=== PATIENT | male | born 1970 ===

== ENCOUNTER 2019-07-31 12:46 | Emergency (ER) | payer OTHER ==
[2019-07-31] MEDS ORDERED: Ketorolac *IM* INJ* 60 MG/2 ML VIAL IM ONE (13:24)
[2019-07-31] MEDS ORDERED: Cyclobenzaprine TAB* 10 MG PO ONE (13:25)
--- NOTE | 2019-07-31 13:31 | UC ---
Shoulder Pain HPI - HPI Summary HPI Summary: patient was shoveling snow 7-8 days ago and experienced L upper back and shoulder pain. has been taking ibuprofen for pain with little relief. pain seems to be getting worse over past 2 days. pain when moving L shoulder or raising arm - History of Current Complaint Chief Complaint: UCGeneralIllness Stated Complaint: NECK/SHOULDER PAIN Time Seen by Provider: 07/31/19 13:09 Hx Obtained From: Patient Onset/Duration: Gradual Onset Timing: Constant Severity Initially: Mild Severity Currently: Moderate Pain Intensity: 7 Character: Throbbing, Spasmodic, Stiffness Aggravating Factor(s): Movement, Lifting, Abduction Alleviating Factor(s): Rest Associated Signs And Symptoms: Negative: Swelling, Redness, Weakness, Numbness/ Tingling - Allergies/Home Medications Allergies/Adverse Reactions: Allergies Allergy/AdvReac Type Severity Reaction Status Date / Time nuts Allergy anaph Uncoded 07/31/19 13:00 Home Medications: Home Medications Minocycline (NF) 1 tab PO DAILY 07/31/19 [History Confirmed 07/31/19] PMH/Surg Hx/FS Hx/Imm Hx Previously Healthy: Yes - Surgical History Surgical History: Yes Surgery Procedure, Year, and Place: spinal surgery lower back - Social History Occupation: Employed Full-time Lives: With Family Alcohol Use: Rare Substance Use Type: None Smoking Status (MU): Never Smoked Tobacco Review of Systems All Other Systems Reviewed And Are Negative: Yes Constitutional: Positive: Negative Skin: Positive: Negative. Negative: Rash Respiratory: Positive: Negative Cardiovascular: Positive: Negative Musculoskeletal: Positive: Negative Neurological: Positive: Negative Psychological: Positive: Negative Is Patient Immunocompromised?: No Physical Exam Triage Information Reviewed: Yes Appearance: Well-Appearing, No Pain Distress, Well-Nourished Vital Signs: Initial Vital Signs Temp 98.6 F 07/31/19 12:57 Pulse 57 07/31/19 12:57 Resp 15 07/31/19 12:57 BP 107/63 07/31/19 12:57 Pulse Ox 100 07/31/19 12:57 Vital Signs Reviewed: Yes Neck exam: Normal Neck: Positive: Supple, Nontender Respiratory Exam: Normal Respiratory: Positive: Lungs clear Cardiovascular Exam: Normal Cardiovascular: Positive: RRR Musculoskeletal Exam: Other - pain R shoulder and upper L trapezius with palpation -palp spasm also pain with shrug or shoulder movement Neurological Exam: Normal Psychological Exam: Normal Skin Exam: Normal Skin: Negative: Rashes Re-Evaluation - Re-Evaluation First Eval Re-Evaluation Time: 13:50 - patient reports decreased pain L shoulder after meds Change: Improved Shoulder Course/Dx - Differential Dx/Diagnosis Differential Diagnosis/HQI/PQRI: Bursitis, Sprain, Strain, Other - shingles Provider Diagnosis: Strain of left shoulder Discharge ED - Sign-Out/Discharge Documenting (check all that apply): Patient Departure All imaging exams completed and their final reports reviewed: No Studies - Discharge Plan Condition: Improved Disposition: HOME Prescriptions: Cyclobenzaprine HCl 10 mg PO TID PRN #12 tablet MDD 3 PRN Reason: Spasms Patient Education Materials: Muscle Strain (ED) Referrals: No Primary Care Phys,NOPCP [Primary Care Provider] - Lizzy Durant MD [Medical Doctor] - 1 Week (if shoulder still painful ) Additional Instructions: do not take ibuprofen or Aleve today you may take muscle relaxer (cyclobenzaprine) today as directed you may take ibuprofen tomorrow: 600-800mg every 6 hours with food for 3-5 days - Billing Disposition and Condition Condition: IMPROVED Disposition: Home
== END 2019-07-31 14:17 | disposition home or self-care (01) ==
LOC: UCEAST 12:46
DX: S46.912A Strain of unspecified muscle, fascia and tendon at shoulder and upper arm level, left arm, initial encounter (principal); Z91.018 Allergy to other foods; X58.XXXA Exposure to other specified factors, initial encounter; Y93.H1 Activity, digging, shoveling and raking; Y92.9 Unspecified place or not applicable
CPT/HCPCS: 96372; 99202; A9270-GY; G0463; J1885